=== PATIENT | male | born 1990 | race Caucasian/White ===

== ENCOUNTER 2021-03-24 15:52 | Inpatient (IN) | payer OTHER ==
[~2021-03-24] VITALS: Ht 182.9 cm; Wt 71.5 kg
[2021-03-24] MEDS ORDERED: HALOPERIDOL 5 MG TABLET PO ONE (17:30)
[2021-03-24] MEDS ORDERED: LORazepam 1 MG TABLET PO ONE (17:30)
[2021-03-24] MEDS ORDERED: ACETAMINOPHEN 325 MG TABLET PO PRN ×2 (19:15→23:00)
[2021-03-24] MEDS ORDERED: ONDANSETRON HCL 4 MG/2 ML VIAL IVP PRN ×2 (19:15→23:00)
[2021-03-24 20:35] VITALS: BP 152/78
[2021-03-24] MEDS ORDERED: DiphenhydrAMINE HCL 50 MG/ML VIAL IM PRN (23:00)
[2021-03-24] MEDS ORDERED: ZOLPIDEM TARTRATE 5 MG TABLET PO PRN (23:00)
[2021-03-24] MEDS ORDERED: LORazepam 2 MG/ML VIAL IM PRN (23:00)
[2021-03-24] MEDS ORDERED: MAGNESIUM HYDROXIDE SUSPENSION 30 ML UDCUP PO PRN (23:00)
[2021-03-24] MEDS ORDERED: BISACODYL 10 MG RECTAL RECTAL SUPPOSITORY PR PRN (23:00)
[2021-03-24] MEDS ORDERED: HALOPERIDOL LACTATE 5 MG/ML VIAL IM PRN (23:00)
[2021-03-25 08:02] VITALS: BP 139/78
[2021-03-25 09:06] LABS: AMPHET/METH SCREEN,URINE NEGATIVE (NEGATIVE); BARBITURATE SCREEN, URINE NEGATIVE (NEGATIVE); BENZODIAZEPINES SCREEN,URINE NEGATIVE (NEGATIVE); CANNABINOID SCREEN,URINE NEGATIVE (NEGATIVE); COCAINE SCREEN,URINE NEGATIVE (NEGATIVE); METHADONE SCREEN, URINE NEGATIVE (NEGATIVE); OPIATE SCREEN,URINE NEGATIVE (NEGATIVE)
[2021-03-25 09:10] LABS: PHENCYCLIDINE SCREEN,URINE NEGATIVE (NEGATIVE)
[2021-03-25] MEDS: RisperiDONE 2 MG TABLET PO SCH ×2 (11:30→20:05)
[2021-03-25] MEDS ORDERED: HALOPERIDOL 5 MG TABLET PO PRN (11:30)
[2021-03-25 19:29] VITALS: BP 111/63
[2021-03-25] MEDS: LORazepam 1 MG TABLET PO PRN (21:29)
[2021-03-26] MEDS: LORazepam 1 MG TABLET PO PRN (01:43)
[2021-03-26 07:32] VITALS: BP 129/70
[2021-03-26] MEDS: RisperiDONE 2 MG TABLET PO SCH ×2 (08:42→20:37)
[2021-03-26] MEDS ORDERED: HydrOXYzine PAMOATE 25 MG CAPSULE PO PRN (13:00)
[2021-03-26 19:18] VITALS: BP 139/77
[2021-03-27 04:10] VITALS: BP 117/78
[2021-03-27 08:10] VITALS: BP 121/77
[2021-03-27] MEDS: RisperiDONE 2 MG TABLET PO SCH ×2 (08:15→19:54)
[2021-03-27 19:25] VITALS: BP 131/72
[2021-03-28 04:20] VITALS: BP 130/76
[2021-03-28 07:40] VITALS: BP 124/79
[2021-03-28] MEDS: RisperiDONE 2 MG TABLET PO SCH ×2 (08:22→19:38)
[2021-03-28] MEDS ORDERED: RISP2TAB45 PO (14:56)
[2021-03-28 15:19] VITALS: BP 144/87
[2021-03-28 19:37] VITALS: BP 131/78
[2021-03-29 05:39] VITALS: BP 132/80
[2021-03-29 07:50] VITALS: BP 120/65
[2021-03-29] MEDS: RisperiDONE 2 MG TABLET PO SCH (08:26)
== END 2021-03-29 11:35 | DRG 885 ==
LOC: EMS 15:56 → 6S 23:13
PROVIDERS: ADMIT Hospitalist; ATTEND Hospitalist
DX: F29 Unspecified psychosis not due to a substance or known physiological condition (principal)
CPT/HCPCS: 99285